=== PATIENT | male | born 1985 | race Caucasian/White ===

== ENCOUNTER 2020-02-05 12:20 | Emergency (ER) | payer OTHER ==
[~2020-02-05] VITALS: Ht 185.4 cm; Wt 75.1 kg
[2020-02-05 13:09] LABS: BASOPHILS # (AUTO) 0.03 x10^3/uL (0-0.1); BASOPHILS % (AUTO) 1 % (0-1); EOSINOPHILS # (AUTO) 0.03 x10^3/uL (0-0.4); EOSINOPHILS % (AUTO) 1 % (1-7); LYMPHOCYTES # (AUTO) 1.85 x10^3/uL (1-3.4); LYMPHOCYTES % (AUTO) 27 % (22-44); MD NO; MEAN CORPUSCULAR HEMOGLOBIN 30.2 pg (27.5-34.5); MEAN CORPUSCULAR HGB CONC 33.1 g/dL (33.2-36.2); MEAN CORPUSCULAR VOLUME 91.5 fL (81-97); MEAN PLATELET VOLUME 8.1 fL (7.4-10.4); MONOCYTES # (AUTO) 0.44 x10^3/uL (0.2-0.8); MONOCYTES % (AUTO) 7 % (2-9); NEUTROPHILS # (AUTO) 4.41 x10^3/uL (1.8-6.8); NEUTROPHILS % (AUTO) 65 % (42-75); PLATELET COUNT 232 x10^3/uL (130-400); RED BLOOD COUNT 4.57 x10^6/uL (4.38-5.82); RED CELL DISTRIBUTION WIDTH 13.5 % (9.4-14.8)
[2020-02-05 13:19] LABS: ALBUMIN 4.3 g/dL (3.4-5.0); ANION GAP 7 mmol/L (5-15); CALCIUM 9.8 mg/dL (8.5-10.1); CHLORIDE 109 mmol/L (98-107); CREATININE 0.98 mg/dL (0.7-1.3); SALICYLATE LEVEL 2.6 mg/dL (2.8-20.0)
[2020-02-05 14:16] LABS: MICROSCOPIC NOT IND
[2020-02-05 14:27] LABS: AMPHETAMINE SCREEN, URINE Negative (Negative); BARBITURATE SCREEN, URINE Negative (Negative); BENZODIAZEPINE SCREEN, URINE Negative (Negative); CANNABINOID SCREEN, URINE Positive (Negative); COCAINE SCREEN, URINE Negative (Negative); METHADONE SCREEN, URINE Negative (Negative); OPIATE SCREEN, URINE Negative (Negative)
[2020-02-05] MEDS ORDERED: HYDROXYZINE PAMOATE 50MG CAP PO PRN (14:30)
[2020-02-05] MEDS ORDERED: SERTRALINE 50MG TABLET ONE (14:34)
[2020-02-05] MEDS ORDERED: TRAZODONE 50MG TABLET ONE (14:34)
[2020-02-05] MEDS: TRAZODONE 50MG TABLET PO PRN (14:36)
[2020-02-05] MEDS: SERTRALINE 50MG TABLET PO SCH (14:37)
--- NOTE | 2020-02-05 15:45 | NUR ---
PT RECEIVED MEAL TRAY. DENIES FURTHER NEEDS AT THIS TIME
--- NOTE | 2020-02-05 18:53 | NUR ---
REPORT RECIEVED FROM INDY DOYLE. PATIENT RESTING IN BED, NO NOTED NEEDS AT THIS TIME. SITTER WITHIN VIEW OF PATIENT, WILL CONTINUE TO MONITOR.
--- NOTE | 2020-02-05 19:18 | NUR ---
PATIENT OFFERED FOOD, DENIED. DENIES ANY FURTHER NEEDS AT THIS TIME. VITAL SIGNS STABLE. NO NOTED FURTHER NEEDS. PATIENT GIVEN INFORMATION REGARDING PLAN OF CARE. SITTER WITHIN VIEW OF PATIENT.
--- NOTE | 2020-02-05 20:14 | NUR ---
RAUL RN: PACKET FAXED TO [facility]
--- NOTE | 2020-02-05 20:53 | NUR ---
PATIENT MOVED ONTO HOSPITAL BED, TOLERATED WELL. REQUESTED WATER, WATER PROVIDED. DENIED ANY ADDITIONAL NEEDS. SITTER WITHIN VIEW OF PATIENT.
--- NOTE | 2020-02-05 23:00 | NUR ---
PATIENT RESTING IN BED, EVEN-UNLABORED RESPIRATIONS. NO NOTED ACUTE DISTRESS. SITTER WITHIN VIEW OF PATIENT. WILL CONTINUE TO MONITOR. PATIENT IS ON HOSPITAL BED TO IMPROVE PATIENT COMFORT. BED IN LOWEST LOCKED POSITION, CALL LIGHT WITHIN REACH.
--- NOTE | 2020-02-06 02:48 | NUR ---
PATIENT RESTING IN BED, NO NOTED NEEDS AT THIS TIME. EVEN-UNLABORED RESPIRATIONS NOTED. SITTER WITHIN VIEW OF PATIENT. WILL CONTINUE TO MONITOR.
--- NOTE | 2020-02-06 03:30 | NUR ---
PATIENT RESTING IN BED, EVEN-UNLABORED RESPIRATIONS NOTED. SITTER IN VIEW OF PATIENT. NO NOTED NEEDS AT THIS TIME. WILL CONTINUE TO MONITOR.
--- NOTE | 2020-02-06 04:30 | NUR ---
PATIENT RESTING IN BED, EVEN-UNLABORED RESPIRATIONS NOTED. SITTER IN VIEW OF PATIENT. NO NOTED NEEDS AT THIS TIME. WILL CONTINUE TO MONITOR.
--- NOTE | 2020-02-06 05:46 | NUR ---
PATIENT RESTING IN BED, EVEN-UNLABORED RESPIRATIONS NOTED. SITTER IN VIEW OF PATIENT. NO NOTED NEEDS AT THIS TIME. WILL CONTINUE TO MONITOR.
--- NOTE | 2020-02-06 06:37 | NUR ---
PATIENT RESTING IN BED, NO NOTED NEEDS. SITTER WITHIN VIEW OF PATIENT. WILL CONTINUE TO MONITOR.
--- NOTE | 2020-02-06 06:45 | NUR ---
REPORT GIVEN TO INDY DAWKINS
--- NOTE | 2020-02-06 06:57 | NUR ---
report received from rebeca eldridge.
--- NOTE | 2020-02-06 06:58 | NUR ---
meal tray ordered at this time.
--- NOTE | 2020-02-06 08:02 | NUR ---
meal tray provided at this time.
[2020-02-06] MEDS ORDERED: SERTRALINE 50MG TABLET ONE (08:05)
[2020-02-06] MEDS: SERTRALINE 50MG TABLET PO SCH (08:31)
--- NOTE | 2020-02-06 08:32 | NUR ---
pt medicated per emar. pt tolerated well.
--- NOTE | 2020-02-06 09:16 | NUR ---
pt sleeping in hospital bed. resps even and unlabored. sitter monitoring from hallway for safety. room remains secure.
--- NOTE | 2020-02-06 09:54 | NUR ---
PT'S 'S NUMBER [phone]
--- NOTE | 2020-02-06 10:01 | NUR ---
PT SLEEPING IN HOSPITAL BED. RESPS EVEN AND UNLABORED. SITTER MONITORING FROM HALLWAY FOR SAFETY. ROOM REMAINS SECURE.
--- NOTE | 2020-02-06 11:16 | NUR ---
DIET TRAY ORDERED AT THIS TIME.
--- NOTE | 2020-02-06 12:01 | NUR ---
MEAL TRAY PROVIDED AT THIS TIME.
--- NOTE | 2020-02-06 13:09 | NUR ---
PT SLEEPING IN HOSPITAL BED. RESPS EVEN AND UNLABORED. SITTER MONITORING FROM HALLWAY FOR SAFETY. ROOM REMAINS SECURE.
--- NOTE | 2020-02-06 14:10 | NUR ---
PT SLEEPING IN HOSPITAL BED. RESPS EVEN AND UNLABORED. SITTER MONITORING FROM HALLWAY FOR SAFETY. ROOM REMAINS SECURE.
--- NOTE | 2020-02-06 15:25 | NUR ---
PT SLEEPING IN HOSPITAL BED. RESPS EVEN AND UNLABORED. SITTER MONITORING FROM HALLWAY FOR SAFETY. ROOM REMAINS SECURE.
--- NOTE | 2020-02-06 16:40 | NUR ---
PT GOT UP FROM BED. PT ASKED SMOKING. THIS RN EDUCATED REGARIG SMOKING POLICY.
--- NOTE | 2020-02-06 16:59 | NUR ---
MEAL TRAY ORDERED AT THIS TIME.
--- NOTE | 2020-02-06 18:05 | NUR ---
DINNER TRAY PROVIDED AT THIS TIME.
--- NOTE | 2020-02-06 18:47 | NUR ---
BS report from Desirae RN, pt care transferred to this RN at this time.
--- NOTE | 2020-02-06 18:50 | NUR ---
REPORT GIVEN TO ALLISON PUTNAM.
--- NOTE | 2020-02-06 18:57 | NUR ---
RN FIRST CONTACT WITH PT: PT LAYING IN HOSPITAL BED, APPEARS COMFORTABLE, BLANKETS PARTIALLY COVERING BODY, LIGHTS DIMMED FOR COMFORT, EYES CLOSED, NAD, SITTER IN LINE OF SIGHT. WCTM.
--- NOTE | 2020-02-06 19:50 | NUR ---
RN AT FOR EVAL OF PT. PT REPORTS "I STILL WANT TO EVERY SINGLE TIME I WAKE UP." PT APPEARS TO HAVE A FLAT AFFECT, NO EMOTIONAL CHANGES NOTED DURING CONVERSATION. PT STATES "I COULDNT GO TO [place] BECAUSE THATS WHERE MY BABY ." PT LAYING IN HOSPITAL BED, UNDER BLANKETS, LIGHTS DIMMED, NO CHANGE IN CONDITION, SITTER IN LINE OF SIGHT, VSS. WCTM.
--- NOTE | 2020-02-06 20:50 | NUR ---
LATE ENTRY: PT RESTING ON HOSPITAL BED, NO CHANGE IN CONDITION, NAD, LIGHTS OFF FOR COMFORT, EYES CLOSED, WCTM. SITTER IN LINE OF SIGHT.
--- NOTE | 2020-02-06 21:51 | NUR ---
PT RESTING ON HOSPITAL BED, NO CHANGE IN CONDITION, NAD, EYES CLOSED, WCTM. SITTER IN LINE OF SIGHT.
--- NOTE | 2020-02-06 22:59 | NUR ---
PT RESTING ON HOSPITAL BED, NO CHANGE IN CONDITION, NAD, EYES CLOSED, WCTM. SITTER IN LINE OF SIGHT. UPDATED ON PHONE, PT STATES HE IS "OKAY WITH HER VISITING."
--- NOTE | 2020-02-07 00:04 | NUR ---
PT RESTING ON HOSPITAL BED, LAYING ON SIDE, RESP WNL, EQUAL AND BILATERAL CHEST RISE AND FALL. SITTER IN LINE OF SIGHT. WCTM.
--- NOTE | 2020-02-07 01:06 | NUR ---
PT RESTING ON HOSPITAL BED, LAYING ON SIDE, RESP WNL, NO CHANGE IN PT CONDITION, EQUAL AND BILATERAL CHEST RISE AND FALL. SITTER IN LINE OF SIGHT. WCTM.
--- NOTE | 2020-02-07 01:57 | NUR ---
PT LAYING ON HOSPITAL BED, APPEARS COMFORTABLE, RESP SEEN
--- NOTE | 2020-02-07 02:35 | NUR ---
PT RESTING ON HOSPITAL BED, NO CHANGE IN CONDITION, RESP HEARD AND EVEN CHEST RISE AND FALL, NAD, EYES CLOSED, WCTM. SITTER IN LINE OF SIGHT.
--- NOTE | 2020-02-07 03:19 | NUR ---
PT CONDITION UNCHANGED. SITTER IN LINE OF SIGHT. WCTM.
--- NOTE | 2020-02-07 04:30 | NUR ---
PT RESTING ON HOSPITAL BED, EYES CLOSED, CONDITION UNCHANGED. SITTER IN LINE OF SIGHT. WCTM.
--- NOTE | 2020-02-07 05:25 | NUR ---
PT RESTING ON HOSPITAL BED, EYES CLOSED, CONDITION UNCHANGED. SITTER IN LINE OF SIGHT. WCTM. BREAKFAST TRAY ORDERED.
--- NOTE | 2020-02-07 06:50 | NUR ---
PT RESTING IN HOSPITAL BED, EYES CLOSED, NAD, CHEST RISE AND FALL EQUAL AND BILATERAL, RESP HEARD. SITTER WITHIN LINE OF SIGHT. BS REPORT TO LES PUTNAM.
--- NOTE | 2020-02-07 07:15 | NUR ---
PT RESTING CALMLY IN HOSPTIAL BED. RESP EVEN AND NON LABORED. SITTER AT DOOR FOR FREQUENT OBS.
[2020-02-07] MEDS ORDERED: SERTRALINE 50MG TABLET ONE (08:29)
[2020-02-07] MEDS: SERTRALINE 50MG TABLET PO SCH (08:37)
--- NOTE | 2020-02-07 08:56 | NUR ---
PT MEDICATED WITH AM MEDS AND GIVEN WATER PER PT REQUEST. PT ABLE TO AMBULATE TO BATHROOM STEADILY WITHOUT ASSIST. PT GIVEN BREAKFAST TRAY. ROOM TIDIED UP A BIT. SITTER AT DOOR FOR OBS.
--- NOTE | 2020-02-07 09:26 | NUR ---
PT RESTING CALMLY IN BED. NO STATED NEEDS AT THIS TIME. SITTER AT DOOR.
--- NOTE | 2020-02-07 10:50 | NUR ---
PT RESTING CALMLY IN BED WITH EYES CLOSED. NO STATED NEEDS AT THIS TIME. WILL CONTINUE TO MONITOR. SITTER AT DOOR.
--- NOTE | 2020-02-07 11:32 | NUR ---
PT RESTING CALMLY IN BED WITH EYES CLOSED. NO STATED NEEDS AT THIS TIME. LUNCH TRAY ORDERED. SITTER AT DOOR FOR FREQUENT OBS.
--- NOTE | 2020-02-07 12:11 | NUR ---
Safetty Meal tray provided to patient.
--- NOTE | 2020-02-07 13:17 | NUR ---
break RN note: pt resting on bed, eating lunch at this time. nadn. sitter monitoring from [facility] for safety. room secure.
--- NOTE | 2020-02-07 14:14 | NUR ---
report given to INDY Carvajal who is assuming care.
--- NOTE | 2020-02-07 14:17 | NUR ---
REPORT RECEIVED FROM AIRAM PUTNAM. PT IS RESTING ON HOSPITAL BED W/ GARAGE DOORS DOWN AND SITTER OUTSIDE ROOM FOR SAFETY. RESP EVEN AND UNLABORED, MANUEL.
--- NOTE | 2020-02-07 15:33 | NUR ---
PT IS RESTING ON HOSPITAL BED W/ GARAGE DOORS DOWN AND SITTER OUTSIDE ROOM FOR SAFETY. RESP EVEN AND UNLABORED, MANUEL.
--- NOTE | 2020-02-07 16:30 | NUR ---
PT IS RESTING ON HOSPITAL BED W/ GARAGE DOORS DOWN AND SITTER OUTSIDE ROOM FOR SAFETY. RESP EVEN AND UNLABORED, MANUEL.
--- NOTE | 2020-02-07 17:30 | NUR ---
PT IS RESTING ON HOSPITAL BED W/ GARAGE DOORS DOWN AND SITTER OUTSIDE ROOM FOR SAFETY. RESP EVEN AND UNLABORED, MANUEL.
--- NOTE | 2020-02-07 17:58 | NUR ---
suicide Safety Meal tray provided to patient.
[2020-02-07] MEDS ORDERED: TRAZODONE 50MG TABLET ONE (18:12)
[2020-02-07] MEDS: TRAZODONE 50MG TABLET PO PRN (18:20)
--- NOTE | 2020-02-07 18:31 | NUR ---
PT TAKEN FOR WALK. COOPERATIVE AND POLITE. RETURNED TO ROOM W/O INCIDENT.
--- NOTE | 2020-02-07 18:35 | NUR ---
PT AMBULATED TO THE SHOWER ACCOMPANIED BY METER REPAIRER HELPER FOR SAFETY.
--- NOTE | 2020-02-07 18:44 | NUR ---
PT PROVIDED CLEAN GOWN AND SOCKS. RETURNED TO ROOM FROM SHOWER. SITTER OUTSIDE ROOM AND GARAGE DOORS DOWN FOR SAFETY. RESP EVEN AND UNLABORED, NADN. PT DENIES FURTHER NEEDS AT THIS TIME.
--- NOTE | 2020-02-07 19:02 | NUR ---
REPORT GIVEN TO ARLIN PUTNAM.
--- NOTE | 2020-02-07 19:04 | NUR ---
BEDSIDE REPORT RECEIVED FROM INDY PÉREZ. ASSUMED CARE OF PT. PT RESTING ON GURNEY WITH EYES OPEN. VERY CALM AND COOPERATIVE, PLEASANT. PT HAS JUST BEEN MEDICATED AND SHOWERED. DENIES ANY OTHER NEEDS OR REQUESTS AT THIS TIME. WILL CONTINUE TO MONITOR.
--- NOTE | 2020-02-07 20:31 | NUR ---
PT SLEEPING. RESPIRATIONS EVEN AND UNLABORED. ROOM REMAINS SECURE, SITTER MONITORING PT OUTSIDE DOOR.
--- NOTE | 2020-02-07 22:21 | NUR ---
PT AWAKE, RESTING ON BED. PROVIDED WITH WATER. DENIES ANY OTHER NEEDS AT THIS TIME. ROOM REMAINS SECURE, SITTER OUTSIDE DOOR.
--- NOTE | 2020-02-07 23:54 | NUR ---
Pt report from Becky eldridge.
--- NOTE | 2020-02-07 23:54 | NUR ---
Roller doors in place. Pt in hospital bed. Sitter in hallway. No immediate needs from pt.
--- NOTE | 2020-02-08 01:59 | NUR ---
Pt sleeping comfortably. NADN. Rr even and unlabored.
--- NOTE | 2020-02-08 02:58 | NUR ---
Pt sleeping comfortably. NADN. Rr even and unlabored.
--- NOTE | 2020-02-08 05:05 | NUR ---
PT sleeping comfortably nadn. Rr even and unlabored. Sitter in hallway. Roller doors remain intact.
--- NOTE | 2020-02-08 05:48 | NUR ---
PT sleeping comfortably nadn. Rr even and unlabored. Sitter in hallway. Roller doors remain intact.
--- NOTE | 2020-02-08 06:43 | NUR ---
PT sleeping comfortably nadn. Rr even and unlabored. Sitter in hallway. Roller doors remain intact.
--- NOTE | 2020-02-08 07:04 | NUR ---
Received bedside report from INDY Penaloza. All questions answered. Pt asleep on hospital bed with unlabored respirations. NADN. No needs expressed. Room remains secured for SI/HI measures and sitter in direct line of sight for observation. No needs expressed at this time.
[2020-02-08] MEDS ORDERED: SERTRALINE 50MG TABLET ONE (07:53)
[2020-02-08] MEDS: SERTRALINE 50MG TABLET PO SCH (08:05)
--- NOTE | 2020-02-08 08:09 | NUR ---
Provided pt medication per EMAR. Pt appreciative. Pt denies SI/HI. Pt states, "I just woke up so not yet." Pt states, "yes, about 15 years ago I tried" patient motions cutting wrists in vertical fashion. No needs expressed at this time. Room remains secured for SI/HI and sitter in direct line of sight for observation. Pt resting on hospital bed with unlabored respirations with even chest rise and fall and is AOX4, calm, and cooperative.
--- NOTE | 2020-02-08 09:29 | NUR ---
Pt provided breakfast tray at 0830. Pt appreciative. NADN. No needs expressed. Sitter in direct line of sight for observation. Room remains secured for SI/HI.
--- NOTE | 2020-02-08 09:54 | NUR ---
TASK RN: PT RESTING COMFORTABLE. NADN. RESPS EQUAL AND UNLABORED. ALL SAFETY MEASURED OBTAINED.
--- NOTE | 2020-02-08 10:11 | NUR ---
assuming pt care at this time. received bedside report from INDY Choi
--- NOTE | 2020-02-08 10:11 | NUR ---
Provided report to INDY Banuelos. All questions answered. INDY Banuelos to assume care at this time.
--- NOTE | 2020-02-08 12:14 | NUR ---
PT SITTING UP IN BED, MEAL TRAY PROVIDED. NAD NOTED AT THIS TIME PT PLEASANT WITH STAFF AT THIS TIME. SITTER OUTSIDE OF ROOM FOR DIRECT OBSERVATION AND Q15 MIN SAFETY CHECKS.
[2020-02-08] MEDS ORDERED: TRAZODONE 100MG TABLET PO PRN (13:00)
--- NOTE | 2020-02-08 13:14 | NUR ---
LATE ENTRY FOR 1210 BEDSIDE REPORT TO TASK RNCARL.
--- NOTE | 2020-02-08 13:30 | NUR ---
REPORT TO INDY SALDANA.
--- NOTE | 2020-02-08 13:46 | NUR ---
PT RESTING IN BED VISITING WITH . NO STATED NEEDS AT THIS TIME. SITTER AT DOOR.
--- NOTE | 2020-02-08 14:48 | NUR ---
PT HAS LEFT. PT STATED PT DOES NOT LIKE JENKINS AND COULD NOT EAT PROVIDED SANDWICH FOR LUNCH. ANOTHE SANDWICH WITHOUT JENKINS ORDERED. PT RESTING IN BED CALMLY AT THIS TIME. WILL CONTINUE TO MONITOR.
--- NOTE | 2020-02-08 15:26 | NUR ---
PT SITTING UP, RESTING CALMLY IN BED. NO STATED NEEDS AT THIS TIME. SITTER AT DOOR FOR OBS.
--- NOTE | 2020-02-08 16:13 | NUR ---
PT GIVEN SANDWICH. NO OTHER STATED NEEDS. SITTER AT DOOR.
--- NOTE | 2020-02-08 17:59 | NUR ---
Lois rogers in ED - 02/08/20 at 1759 by SARANYA PT MEDICATED WITH ORDERED MEDS FROM EMAR.
--- NOTE | 2020-02-08 18:28 | NUR ---
PT GIVEN DINNER TRAY. PT RESTING CALMLY IN BED. NO STATED NEEDS AT THIS TIME. WILL CONTINUE TO MONITOR. SITTER AT DOOR FOR FREQUENT OBS.
--- NOTE | 2020-02-08 18:32 | NUR ---
pt ambulating steadily to bathroom. sitter at door for obs.
--- NOTE | 2020-02-08 18:51 | NUR ---
REPORT FROM LES ASSUMED CARE OF PT
--- NOTE | 2020-02-08 18:52 | NUR ---
report given to Ivory Yepez rn
--- NOTE | 2020-02-08 19:14 | NUR ---
SITTER AT DOORWAY ROOM SECURE
--- NOTE | 2020-02-08 19:57 | NUR ---
Patient is resting comfortably in bed. Vital Signs within normal limits.
--- NOTE | 2020-02-08 21:22 | NUR ---
Patient is resting comfortably in bed. Vital Signs within normal limits.
[2020-02-08] MEDS ORDERED: TRAZODONE 100MG TABLET ONE (21:30)
--- NOTE | 2020-02-08 23:19 | NUR ---
CRACKERS PROVIDED REQUESTED PT IN NAD
--- NOTE | 2020-02-09 00:50 | NUR ---
Patient is resting comfortably in bed.
--- NOTE | 2020-02-09 01:15 | NUR ---
Report received from INDY Cruz. This RN to assume care.
--- NOTE | 2020-02-09 01:38 | NUR ---
Patient sleeping in hospital bed. Respirations even and unlabored. Room secured, belongings in locked cabinet, sitter outside.
--- NOTE | 2020-02-09 02:32 | NUR ---
Patient sleeping in hospital bed. Respirations even and unlabored. Room secured, belongings in locked cabinet, sitter outside.
--- NOTE | 2020-02-09 03:55 | NUR ---
Patient sleeping in hospital bed. Respirations even and unlabored. Room secured, belongings in locked cabinet, sitter outside.
--- NOTE | 2020-02-09 04:40 | NUR ---
Patient sleeping in hospital bed. Respirations even and unlabored. Room secured, belongings in locked cabinet, sitter outside.
--- NOTE | 2020-02-09 05:30 | NUR ---
Meal tray ordered for breakfast and lunch.
--- NOTE | 2020-02-09 05:31 | NUR ---
Patient sleeping in hospital bed. Respirations even and unlabored. Room secured, belongings in locked cabinet, sitter outside.
--- NOTE | 2020-02-09 06:44 | NUR ---
Report given to INDY Oropeza. Care transferred.
--- NOTE | 2020-02-09 06:44 | NUR ---
RECEIVED REPORT FROM JAYASHREE RN, PLAN OF CARE DISCUSSED
--- NOTE | 2020-02-09 07:29 | NUR ---
MEAL ORDERED. PT SLEEPING, RESP EVEN AND UNLABORED. SITTER A BEDSIDE, ROOM SECURED.
[2020-02-09 08:05] VITALS: BP 137/78
--- NOTE | 2020-02-09 08:07 | NUR ---
MEAL PROVIDED, PT VERBALIZED NO ADDITINAL NEEDS AT THIS TIME. ROOM SECURED, SITTER AT DOOR
--- NOTE | 2020-02-09 09:51 | NUR ---
PT SLEEPING, RESP EVEN AND UNLABORED. SITTER AT DOOR, ROOM REMAINS SECURED
--- NOTE | 2020-02-09 10:57 | NUR ---
ORDERED MEAL. PT SLEEPING RESP EVEN AND UNLABORED. SITTER AT BS, ROOM REMAINS SECURED
--- NOTE | 2020-02-09 11:30 | NUR ---
PT UP TO SHOWER WITH SBA
--- NOTE | 2020-02-09 11:59 | NUR ---
PT WATCHING TV, ROOM REMAINS SECURED. SITTER AT DOOR
--- NOTE | 2020-02-09 12:28 | NUR ---
TASK RN, FIRST CONTACT WITH PT. Pt resting sitting on hospital bed watching TV. Room remains secured for SI/HI. Sitter sitting near doorway in direct line of sight for observation. Pt provided lunch tray. Pt appreciative. No other needs expressed at this time. No acute distress noticed at this time.
--- NOTE | 2020-02-09 12:37 | NUR ---
miguel with [facility] called and accepting pt per dr driver. eta [phone]
--- NOTE | 2020-02-09 12:38 | NUR ---
TASK RN: PROVIDED REPORT TO INDY SMITH FROM [facility], ALL QUESTIONS ANSWERED.
--- NOTE | 2020-02-09 13:21 | NUR ---
BREAK RN NOTE: PT RESTING ON HOSPITAL BED, EATING SI MEAL TRAY AND CONVERSING WITH SITTER. ROOM REMAINS SECURE.
--- NOTE | 2020-02-09 13:31 | NUR ---
REPORT RECEIVED FROM SHARRI PUTNAM.
--- NOTE | 2020-02-09 13:41 | NUR ---
PT TAKEN FOR WALK ACCOMPANIED BY CIGARETTE PAPER TESTER. PT PLEASANT AND COOPERATIVE.
--- NOTE | 2020-02-09 13:50 | NUR ---
PT UPDATED ON POC FOR TRANSPORT, DENIES FURTHER NEEDS AT THIS TIME.
--- NOTE | 2020-02-09 13:51 | NUR ---
SINCE PT WILL BE TRANSFERRED TO ANOTHER FACILITY PTS VEHICLE INFORMATION PROVIDED TO SECURITY FOR RESIDENTIAL PARKING.
--- NOTE | 2020-02-09 16:07 | NUR ---
REPORT GIVEN TO EMS. PT AMBULATED TO AMBULANCE BAY FOR TRANSFER W/ A STEADY GAIT. MANUEL.
--- NOTE | 2020-02-09 16:33 | NUR ---
TELEPHONE CALL TO [facility] [phone], REQUESTED BY PT, TO UPDATE ON PTS TRANSFER.
== END 2020-02-09 16:33 ==
LOC: ED 17:47
DX: R45.851 Suicidal ideations (principal); F32.9 Major depressive disorder, single episode, unspecified; R00.0 Tachycardia, unspecified
CPT/HCPCS: 36415; 80048; 80307; 81003; 82040; 85025; 93005; 99284

== ENCOUNTER 2020-02-26 09:25 | Emergency (ER) | payer MEDICAID ==
[~2020-02-26] VITALS: Ht 182.9 cm; Wt 71.2 kg
[2020-02-26] MEDS ORDERED: MORPHINE SULFATE 4 MG/ML, 1ML IVPush PRN (10:00)
[2020-02-26] MEDS ORDERED: LORazepam 2 MG/ML, 1ML IVPush ONE (10:00)
[2020-02-26] MEDS ORDERED: ONDANSETRON 2MG/ML, 2ML IVPush ONE (10:00)
[2020-02-26] MEDS ORDERED: MORPHINE SULFATE 4 MG/ML, 1ML ONE (10:07)
[2020-02-26] MEDS ORDERED: ONDANSETRON 2MG/ML, 2ML ONE (10:07)
[2020-02-26] MEDS ORDERED: LORazepam 2 MG/ML, 1ML ONE (10:08)
[2020-02-26 10:12] LABS: BASOPHILS # (AUTO) 0.03 x10^3/uL (0-0.1); BASOPHILS % (AUTO) 0 % (0-1); EOSINOPHILS # (AUTO) 0.05 x10^3/uL (0-0.4); EOSINOPHILS % (AUTO) 1 % (1-7); LYMPHOCYTES # (AUTO) 1.48 x10^3/uL (1-3.4); LYMPHOCYTES % (AUTO) 23 % (22-44); MD NO; MEAN CORPUSCULAR HEMOGLOBIN 30.5 pg (27.5-34.5); MEAN CORPUSCULAR HGB CONC 33.8 g/dL (33.2-36.2); MEAN PLATELET VOLUME 8.4 fL (7.4-10.4); MONOCYTES # (AUTO) 0.42 x10^3/uL (0.2-0.8); MONOCYTES % (AUTO) 6 % (2-9); NEUTROPHILS % (AUTO) 70 % (42-75); PLATELET COUNT 202 x10^3/uL (130-400); RED BLOOD COUNT 4.94 x10^6/uL (4.38-5.82); RED CELL DISTRIBUTION WIDTH 12.8 % (9.4-14.8)
--- NOTE | 2020-02-26 10:14 | NUR ---
PIV STARTED AND BLOOD DRAWN. PT MEDICATED PER MAR.
[2020-02-26] MEDS ORDERED: PRAZ2CAP2 PO (10:16)
[2020-02-26] MEDS ORDERED: DULO20CA45 PO (10:16)
[2020-02-26 10:22] LABS: ALANINE AMINOTRANSFERASE 26 U/L (12-78); ALBUMIN 4.5 g/dL (3.4-5.0); ANION GAP 9 mmol/L (5-15); CALCIUM 9.9 mg/dL (8.5-10.1); CHLORIDE 108 mmol/L (98-107)
[2020-02-26 10:26] LABS: ALKALINE PHOSPHATASE 89 U/L (45-117); BILIRUBIN,TOTAL 0.4 mg/dL (0.2-1.0); TOTAL PROTEIN 7.5 g/dL (6.4-8.2); TROPONIN I < 0.015 ng/mL (0.000-0.045)
[2020-02-26 10:51] LABS: D-DIMER < 0.19 ug/mlFEU (0.00-0.52); INTERNATIONAL NORMALIZED RATIO 0.93 (0.93-1.1); PROTHROMBIN TIME 9.8 Seconds (9.6-11.5)
[2020-02-26 12:23] VITALS: BP 134/86
== END 2020-02-26 12:26 | disposition home or self-care (01) ==
LOC: ED 09:57
DX: J06.9 Acute upper respiratory infection, unspecified (principal); R11.2 Nausea with vomiting, unspecified; R51 Headache; R07.89 Other chest pain
CPT/HCPCS: 36415; 71045; 80053; 84484; 85025; 85379; 85610; 93005; 96374; 96375; 99285; J2060; J2270; J2405

== ENCOUNTER 2020-02-29 13:18 | Inpatient (IN) | payer MEDICAID ==
[~2020-02-29] VITALS: Ht 182.9 cm; Wt 71.6 kg
[~2020-02-29 13:18] MED LIST changes: -DULO30CA2 PO; -RAME8TAB19 PO
[2020-02-29] MEDS ORDERED: DOCUSATE 100 MG CAPSULE PO PRN (15:00)
[2020-02-29] MEDS ORDERED: ONDANSETRON ODT 4 MG PO PRN (15:00)
[2020-02-29] MEDS ORDERED: POLYETHYLENE GLYCOL 17 GM PACKET PO PRN (15:00)
[2020-02-29] MEDS ORDERED: PLEASE ENTER HEIGHT AND WEIGHT MC SCH (15:01)
[2020-02-29 15:04] VITALS: BP 138/88
[2020-02-29] MEDS ORDERED: DULO30CA2 PO (18:02)
[2020-02-29] MEDS ORDERED: RAME8TAB19 PO (18:04)
[2020-02-29 20:00] VITALS: BP 119/72
[2020-02-29] MEDS: PRAZOSIN 1 MG CAPSULE PO SCH (21:13)
[2020-02-29] MEDS: DOXEPIN 25 MG CAPSULE PO SCH (21:13)
[2020-03-01 06:35] LABS: BASOPHILS # (AUTO) 0.02 x10^3/uL (0-0.1); BASOPHILS % (AUTO) 1 % (0-1); EOSINOPHILS # (AUTO) 0.21 x10^3/uL (0-0.4); EOSINOPHILS % (AUTO) 5 % (1-7); LYMPHOCYTES # (AUTO) 2.25 x10^3/uL (1-3.4); LYMPHOCYTES % (AUTO) 47 % (22-44); MD NO; MEAN CORPUSCULAR HEMOGLOBIN 30.6 pg (27.5-34.5); MEAN CORPUSCULAR HGB CONC 33.5 g/dL (33.2-36.2); MEAN CORPUSCULAR VOLUME 91.5 fL (81-97); MEAN PLATELET VOLUME 8.5 fL (7.4-10.4); MONOCYTES # (AUTO) 0.45 x10^3/uL (0.2-0.8); MONOCYTES % (AUTO) 10 % (2-9); NEUTROPHILS # (AUTO) 1.81 x10^3/uL (1.8-6.8); NEUTROPHILS % (AUTO) 38 % (42-75); PLATELET COUNT 186 x10^3/uL (130-400); RED CELL DISTRIBUTION WIDTH 13.5 % (9.4-14.8)
[2020-03-01 06:57] LABS: ANION GAP 4 mmol/L (5-15); CALCIUM 8.7 mg/dL (8.5-10.1); CHLORIDE 109 mmol/L (98-107)
[2020-03-01 07:09] LABS: CHOL/HDL RATIO 3.5; CHOLESTEROL, TOTAL 195 mg/dL (140-239); CREATININE 0.99 mg/dL (0.7-1.3); FREE T4 (FREE THYROXINE) 0.97 ng/dL (0.76-1.46); HDL CHOL % 29 % (26-37); HDL CHOLESTEROL (DIRECT) 56 mg/dL (40-60); LDL CHOLESTEROL,CALCULATED 117 mg/dL (54-169); LDL/HDL RATIO 2.1 (0.5-3.0); TRIGLYCERIDES 109 mg/dL (50-200); VLDL CHOLESTEROL 22 mg/dL (0-25)
[2020-03-01 07:21] VITALS: BP 120/77
[2020-03-01] MEDS: DULOXETINE 30 MG CAPSULE.DR PO SCH (09:00)
[2020-03-01 19:27] VITALS: BP 143/91
[2020-03-01] MEDS: PRAZOSIN 1 MG CAPSULE PO SCH (20:45)
[2020-03-01] MEDS: DOXEPIN 25 MG CAPSULE PO SCH (20:45)
[2020-03-02 07:07] VITALS: BP_SYST 125; BP_SYST 143; BP_DIAS 91
[2020-03-02] MEDS: DULOXETINE 30 MG CAPSULE.DR PO SCH (09:51)
[2020-03-02 19:50] VITALS: BP 135/90
[2020-03-02] MEDS: PRAZOSIN 1 MG CAPSULE PO SCH (20:12)
[2020-03-02] MEDS: DOXEPIN 25 MG CAPSULE PO SCH (20:12)
[2020-03-03 07:06] VITALS: BP 125/79
[2020-03-03] MEDS: DULOXETINE 30 MG CAPSULE.DR PO SCH (10:45)
[2020-03-03 19:45] VITALS: BP 138/94
[2020-03-03] MEDS: QUETIAPINE 100MG TABLET PO SCH (20:46)
[2020-03-03] MEDS: PRAZOSIN 1 MG CAPSULE PO SCH (20:46)
[2020-03-04 07:05] VITALS: BP 126/84
[2020-03-04] MEDS: DULOXETINE 30 MG CAPSULE.DR PO SCH (08:52)
[2020-03-04] MEDS: ACETAMINOPHEN 325 MG TABLET PO PRN (10:15)
[2020-03-04 19:52] VITALS: BP 149/92
[2020-03-04] MEDS: PRAZOSIN 1 MG CAPSULE PO SCH (20:18)
[2020-03-04] MEDS: QUETIAPINE 100MG TABLET PO SCH (20:18)
[2020-03-05 07:02] VITALS: BP 140/91
[2020-03-05] MEDS ORDERED: DULOXETINE 30 MG CAPSULE.DR ONE (09:47)
[2020-03-05] MEDS: DULOXETINE 30 MG CAPSULE.DR PO SCH (09:49)
[2020-03-05 18:58] VITALS: BP 137/96
[2020-03-05] MEDS: PRAZOSIN 1 MG CAPSULE PO SCH (20:31)
[2020-03-05] MEDS: QUETIAPINE 100MG TABLET PO SCH (20:31)
[2020-03-06 07:00] VITALS: BP 139/93
[2020-03-06] MEDS ORDERED: DULOXETINE 30 MG CAPSULE.DR PO SCH (09:00)
[2020-03-06] MEDS: DULOXETINE 30 MG CAPSULE.DR PO SCH (09:30)
[2020-03-06] MEDS ORDERED: LORazepam 1MG TABLET ONE (15:16)
[2020-03-06] MEDS ORDERED: LORazepam 1MG TABLET PO ONE (15:30)
[2020-03-06 19:34] VITALS: BP 125/85
[2020-03-06] MEDS: PRAZOSIN 1 MG CAPSULE PO SCH (20:27)
[2020-03-06] MEDS: MELATONIN 5 MG TABLET PO SCH (20:27)
[2020-03-06] MEDS: QUETIAPINE 100MG TABLET PO SCH (20:27)
[2020-03-07 07:20] VITALS: BP 133/90
[2020-03-07] MEDS: DULOXETINE 30 MG CAPSULE.DR PO SCH (08:21)
[2020-03-07] MEDS ORDERED: LORazepam 1MG TABLET ONE (11:48)
[2020-03-07] MEDS: LORazepam 1MG TABLET PO PRN ×2 (11:50→16:11)
[2020-03-07 18:45] VITALS: BP 137/84
[2020-03-07] MEDS: QUETIAPINE 100MG TABLET PO SCH (19:48)
[2020-03-07] MEDS: PRAZOSIN 1 MG CAPSULE PO SCH (19:49)
[2020-03-07] MEDS: MELATONIN 5 MG TABLET PO SCH (19:49)
[2020-03-08 07:11] VITALS: BP 142/86
[2020-03-08] MEDS: LORazepam 1MG TABLET PO PRN (08:35)
[2020-03-08] MEDS: DULOXETINE 30 MG CAPSULE.DR PO SCH (08:35)
[2020-03-08 19:25] VITALS: BP 139/87
[2020-03-08] MEDS: PRAZOSIN 1 MG CAPSULE PO SCH (19:52)
[2020-03-08] MEDS: MELATONIN 5 MG TABLET PO SCH (19:52)
[2020-03-08] MEDS: QUETIAPINE 100MG TABLET PO SCH (19:53)
[2020-03-09 07:05] VITALS: BP 141/90
[2020-03-09] MEDS: DULOXETINE 30 MG CAPSULE.DR PO SCH (07:59)
[2020-03-09] MEDS: LORazepam 1MG TABLET PO PRN (08:43)
[2020-03-09 19:30] VITALS: BP 136/86
[2020-03-09] MEDS: PRAZOSIN 1 MG CAPSULE PO SCH (20:08)
[2020-03-09] MEDS: QUETIAPINE 100MG TABLET PO SCH (20:08)
[2020-03-09] MEDS: MELATONIN 5 MG TABLET PO SCH (20:08)
[2020-03-10] MEDS: ACETAMINOPHEN 325 MG TABLET PO PRN (06:14)
[2020-03-10 07:28] VITALS: BP 137/84
[2020-03-10] MEDS: DULOXETINE 30 MG CAPSULE.DR PO SCH (08:50)
[2020-03-10] MEDS: LORazepam 1MG TABLET PO PRN (15:01)
[2020-03-10 18:51] VITALS: BP 146/90
[2020-03-10] MEDS: MELATONIN 5 MG TABLET PO SCH (20:01)
[2020-03-10] MEDS: PRAZOSIN 1 MG CAPSULE PO SCH (20:01)
[2020-03-10] MEDS: QUETIAPINE 100MG TABLET PO SCH (20:02)
[2020-03-11 07:00] VITALS: BP 128/85
[2020-03-11] MEDS: DULOXETINE 30 MG CAPSULE.DR PO SCH (08:17)
[2020-03-11] MEDS: LORazepam 1MG TABLET PO PRN ×2 (11:48→19:54)
[2020-03-11] MEDS ORDERED: PRAZ1CAP2 PO (12:58)
[2020-03-11] MEDS ORDERED: DULO30CA2 PO (12:58)
[2020-03-11] MEDS ORDERED: QUET100T PO (12:58)
[2020-03-11] MEDS ORDERED: MELA5TAB14 PO (12:58)
[2020-03-11 19:54] VITALS: BP 138/96
[2020-03-11] MEDS: PRAZOSIN 1 MG CAPSULE PO SCH (19:54)
[2020-03-11] MEDS: QUETIAPINE 100MG TABLET PO SCH (19:54)
[2020-03-11] MEDS ORDERED: MELATONIN 5 MG TABLET PO SCH (21:00)
[2020-03-12 07:15] VITALS: BP 133/91
[2020-03-12] MEDS: DULOXETINE 30 MG CAPSULE.DR PO SCH (08:34)
[2020-03-12] MEDS: LORazepam 1MG TABLET PO PRN (09:06)
== END 2020-03-12 13:07 | disposition home or self-care (01) | DRG 885 ==
LOC: 3E 14:25
PROVIDERS: ADMIT Psychiatry & Neurology Psychosomatic Medicine; ATTEND Psychiatry & Neurology Psychosomatic Medicine
DX: F33.2 Major depressive disorder, recurrent severe without psychotic features (principal); R45.851 Suicidal ideations; F11.20 Opioid dependence, uncomplicated; F15.20 Other stimulant dependence, uncomplicated; F12.90 Cannabis use, unspecified, uncomplicated; F17.210 Nicotine dependence, cigarettes, uncomplicated; F12.10 Cannabis abuse, uncomplicated; F43.10 Post-traumatic stress disorder, unspecified; F43.21 Adjustment disorder with depressed mood; Z66 Do not resuscitate; G47.00 Insomnia, unspecified; G89.29 Other chronic pain; I10 Essential (primary) hypertension; Z59.0 Homelessness; Z79.899 Other long term (current) drug therapy; Z80.9 Family history of malignant neoplasm, unspecified; Z91.018 Allergy to other foods; Z56.0 Unemployment, unspecified
CPT/HCPCS: 36415; 80048; 80061; 84439; 84443; 85025

== ENCOUNTER → 2020-02-29 | Emergency (ER) | payer MEDICAID ==
[~2020-02-29] VITALS: Ht 182.9 cm; Wt 76.4 kg
[~2020-02-29] MED LIST: DULO20CA45 PO; DULO30CA2 PO; PRAZ2CAP2 PO; RAME8TAB19 PO
[2020-02-29 11:36] VITALS: BP 146/100
[2020-02-29 12:08] LABS: BASOPHILS # (AUTO) 0.02 x10^3/uL (0-0.1); BASOPHILS % (AUTO) 0 % (0-1); EOSINOPHILS # (AUTO) 0.07 x10^3/uL (0-0.4); EOSINOPHILS % (AUTO) 1 % (1-7); LYMPHOCYTES # (AUTO) 1.71 x10^3/uL (1-3.4); LYMPHOCYTES % (AUTO) 32 % (22-44); MD NO; MEAN CORPUSCULAR HEMOGLOBIN 30.1 pg (27.5-34.5); MEAN CORPUSCULAR HGB CONC 32.6 g/dL (33.2-36.2); MEAN CORPUSCULAR VOLUME 92.4 fL (81-97); MEAN PLATELET VOLUME 8.2 fL (7.4-10.4); MONOCYTES # (AUTO) 0.32 x10^3/uL (0.2-0.8); MONOCYTES % (AUTO) 6 % (2-9); NEUTROPHILS # (AUTO) 3.28 x10^3/uL (1.8-6.8); NEUTROPHILS % (AUTO) 61 % (42-75); PLATELET COUNT 200 x10^3/uL (130-400); RED BLOOD COUNT 4.28 x10^6/uL (4.38-5.82); RED CELL DISTRIBUTION WIDTH 13.6 % (9.4-14.8)
[2020-02-29 12:19] LABS: ALANINE AMINOTRANSFERASE 23 U/L (12-78); ALBUMIN 3.9 g/dL (3.4-5.0); ANION GAP 4 mmol/L (5-15); CALCIUM 8.9 mg/dL (8.5-10.1); CHLORIDE 109 mmol/L (98-107); CREATININE 1.09 mg/dL (0.7-1.3)
--- NOTE | 2020-02-29 12:19 | NUR ---
TASK RN: NELSON MORGAN INTERVIEWING PT
[2020-02-29 12:22] LABS: ALKALINE PHOSPHATASE 82 U/L (45-117); BILIRUBIN,TOTAL 0.2 mg/dL (0.2-1.0); TOTAL PROTEIN 6.7 g/dL (6.4-8.2)
--- NOTE | 2020-02-29 12:44 | NUR ---
BELONGINGS PLACED IN LOCKER
--- NOTE | 2020-02-29 12:57 | NUR ---
PT GIVEN LUNCH TRAY
[2020-02-29 12:58] LABS: AMPHETAMINE SCREEN, URINE Negative (Negative); BARBITURATE SCREEN, URINE Negative (Negative); BENZODIAZEPINE SCREEN, URINE Negative (Negative); CANNABINOID SCREEN, URINE Positive (Negative); COCAINE SCREEN, URINE Negative (Negative); METHADONE SCREEN, URINE Negative (Negative)
[2020-02-29 13:02] LABS: OPIATE SCREEN, URINE Negative (Negative)
--- NOTE | 2020-02-29 13:15 | NUR ---
REPORT RECEIVED FROM PEYMAN PUTNAM.
--- NOTE | 2020-02-29 13:20 | NUR ---
REPORT GIVEN TO LINDA PUTNAM. ALL QUESTIONS ANSWERED.
== END ==
LOC: ED 12:44
DX: R45.851 Suicidal ideations (principal); F11.90 Opioid use, unspecified, uncomplicated; F32.9 Major depressive disorder, single episode, unspecified
CPT/HCPCS: 36415; 80053; 80307; 85025; 99283